=== PATIENT | female | born 1950 | race Caucasian/White ===

== ENCOUNTER 2019-03-01 22:05 | Emergency (ER) | payer OTHER ==
[~2019-03-01] VITALS: Ht 154.9 cm; Wt 47.6 kg
[2019-03-01] MEDS ORDERED: ACTIGALL300 MG (22:14)
== END 2019-03-01 23:53 | disposition home or self-care (01) ==
LOC: ER 22:05
DX: N30.81 Other cystitis with hematuria (principal); K59.09 Other constipation; R31.0 Gross hematuria; K74.69 Other cirrhosis of liver